=== PATIENT | female | born 1985 | race Two or more races ===

== ENCOUNTER 2016-11-14 17:07 | Outpatient (CLI) | payer MEDICAID ==
[~2016-11-14] VITALS: Ht 152.4 cm; Wt 76.1 kg
[~2016-11-14 17:07] MED LIST: CALC-176 PO; PRENAT PO
[2016-11-14 17:36] VITALS: BP 109/68; PULSE 75; RESP 18; Ht 152.4 cm; Wt 76.1 kg
[2016-11-14] MEDS ORDERED: LACTATED RINGER'S 1,000 ML IV ONE (18:00)
[2016-11-14] MEDS ORDERED: LACTATED RINGER'S 1,000 ML IV SCH (18:00)
[2016-11-14 19:11] LABS: BASOPHILS % 0.3 % (0.0-2.0); EOSINOPHILS # 0.1 10^3/ul (0.0-0.5); HEMATOCRIT 32.9 % (37.0-47.0); HEMOGLOBIN 11.1 g/dl (12.0-16.0); LYMPHOCYTES # 1.3 10^3/ul (0.8-2.9); LYMPHOCYTES % 19.9 % (15.0-51.0); MEAN CORPUSCULAR HEMOGLOBIN 28.5 pg (29.0-33.0); MEAN CORPUSCULAR HGB CONC 33.6 g/dl (32.0-37.0); MEAN CORPUSCULAR VOLUME 84.7 fl (82.0-101.0); MEAN PLATELET VOLUME 8.9 fl (7.4-10.4); MONOCYTE # 0.6 10^3/ul (0.3-0.9); MONOCYTES % 9.4 % (0.0-11.0); NEUTROPHIL # 4.7 10^3/ul (1.6-7.5); NEUTROPHILS % 69.4 % (39.0-77.0); PLATELET COUNT 132 10^3/UL (140-440); RED BLOOD COUNT 3.89 10^6/ul (4.20-5.40); UNCORRECTED WBC 6.8 10^3/ul (4.8-10.8); WHITE BLOOD COUNT 6.8 10^3/ul (4.8-10.8)
[2016-11-14 19:12] LABS: ADD UMIC NO; URINE BILIRUBIN (Dip) NEGATIVE (NEGATIVE); URINE BLOOD (Dip) NEGATIVE (NEGATIVE); URINE COLOR LT. YELLOW (YELLOW); URINE GLUCOSE (Dip) NEGATIVE (NEGATIVE); URINE KETONES (Dip) NEGATIVE (NEGATIVE); URINE LEUKOCYTE ESTERASE (Dip) NEGATIVE (NEGATIVE); URINE NITRITE (Dip) NEGATIVE (NEGATIVE); URINE TOTAL PROTEIN (Dip) NEGATIVE (NEGATIVE); URINE UROBILINOGEN (Dip) 0.2 E.U./dL (0.1-1.0)
[2016-11-14 19:25] LABS: CONDITION 1
--- NOTE | 2016-11-14 19:52 | RADRPT ---
PROCEDURE: US OB biophysical profile. CLINICAL INDICATION: labor TECHNIQUE: Multiple sonographic images of the pelvis were obtained. The images were reviewed on a PACS workstation. COMPARISON: No prior studies are available for comparison. FINDINGS: There is a single viable intrauterine gestation. Cardiac activity is present with 137 beats per min nez perce. There is a transverse presentation to maternal left. The placenta is fundal and posterior. There is no evidence of placental abruption. There is a mildly elevated amount of amniotic fluid with an JAD = 19.4 cm. Biophysical profile: movement 2/2 tone 2/2. breathing 2/2 JAD 2/2 Total 06/12 RPTAT: AA . IMPRESSION: Normal biophysical profile. Transverse presentation to maternal left. Mildly elevated JAD of 19.4 cm. Physician Juan Date Time Electronically viewed and signed by Physician Juan on 11/14/2016 19:52 /
--- NOTE | 2016-11-14 19:54 | RADRPT ---
PROCEDURE: US OB CLINICAL INDICATION: PTL TECHNIQUE: Multiple sonographic images of the pelvis were obtained. The images were reviewed on a PACS workstation. COMPARISON: None FINDINGS: The cervix is closed with a length of 4.9 cm. There is a single viable intrauterine gestation. Cardiac activity is present with 134 beats per minute. There is a transverse presentation to maternal left. The placenta is posterior and fundal. There is no evidence for an abruption or placenta previa. There is a mildly elevated amount of amniotic fluid with an JAD = 19.4 cm. Measurements were made in order to determine age. The results are as follows (cm): BPD =9.29 HC =33.22 AC =33.50 FL =6.49 Estimated gestational age by ultrasound of approximately 36 weeks, 4 days. The estimated date of delivery by ultrasound is 12/08/2016. Reported gestational age by LMP of approximately 33 weeks, 6 days. The reported date of delivery by LMP is 12/27/2016. EFW = 2968 grams (above the 97th percentile) IMPRESSION: Single viable intrauterine gestation of approximately 36 weeks, 4 days . The estimated date of delivery is 12/08/2016 . Dating by ultrasound is within 19 days of dating by LMP. Mildly elevated JAD of 19.4 cm. Estimated weight above the 97th percentile. Transverse presentation to maternal left. RPTAT: EE Physician Juan Date Time Electronically viewed and signed by Physician Juan on 11/14/2016 19:54 /
--- NOTE | 2016-11-14 20:52 | TRIAGE ---
OB Triage Datetime Report Generated by CPN: 11/14/2016 20:52 Datetime: 11/14/2016 20:04 Monitor Mode: External Quality: Mild Pattern: Normal: <= 5 Contractions in 10 Minutes Resting Tone Lyle: Relaxed Heart Rate FHR Baseline Rate: 115 Monitor Mode: External US FHR Baseline Changes: No Baseline Change Variability: Moderate 6-25 bpm Accelerations: 15X15 Decelerations: None Category: Category I Datetime: 11/14/2016 19:15 Stage of : OB Triage Monitor Mode: External Quality: Mild Pattern: Normal: <= 5 Contractions in 10 Minutes Resting Tone Lyle: Relaxed Contraction Comments: Pt denies feeling Heart Rate FHR Baseline Rate: 120 Monitor Mode: External US FHR Baseline Changes: No Baseline Change Variability: Moderate 6-25 bpm Accelerations: 15X15 Decelerations: None Category: Category I Pain Assessment Pain Scale: 0 Pain Presence: None/Denies Pain Type: N/A Datetime: 11/14/2016 18:30 Stage of : OB Triage Maternal Assessment Level of Consciousness: Fully Conscious Labor Evaluation Frequency: 3UC/HR Monitor Mode: External Duration (sec)2399: 110-130 Quality: Moderate Resting Tone Lyle: Relaxed Heart Rate FHR Baseline Rate: 125 Monitor Mode: External US Variability: Moderate 6-25 bpm Accelerations: 15X15 Decelerations: None Pain Assessment Pain Scale: 0 Pain Presence: None/Denies Pain Type: N/A Pain Goal: 3 Vaginal Exam Membrane Status: Intact Vaginal Bleeding: None Datetime: 11/14/2016 17:43 Labor Evaluation Frequency: Q10/MIN Monitor Mode: External Duration (sec)2399: 70-90 Quality: Mild Pattern: Normal: <= 5 Contractions in 10 Minutes Resting Tone Lyle: Relaxed Heart Rate FHR Baseline Rate: 125 Monitor Mode: External US FHR Baseline Changes: No Baseline Change Variability: Moderate 6-25 bpm Accelerations: 15X15 Decelerations: None Category: Category I Datetime: 11/14/2016 17:40 Assessment Type: Admission Assessment Maternal Assessment Level of Consciousness: Fully Conscious DTR's/Clonus: DTRs 2+; No Clonus Headache: Denies Blurred Vision: No Respiratory Effort: Unlabored; Regular Rhythm; Equal Expansion Breath Sounds, Left: Clear and Equal Breath Sounds, Right: Clear and Equal Nausea/Vomiting: Denies RUQ Epigastric Pain: Denies Lower Extremities Edema: None Degree: None Upper Extremities Edema: None Degree: None Facial Edema: None Fall Risk Assessment History of Falling: (0) No Secondary Diagnosis: (0) No Ambulatory Aid: (0) Bedrest/Nurse Assist IV Therapy: (0) No Gait: (0) Normal/Bedrest/Immobile Mental Status: (0) Oriented to Own Ability Fall Score: 0 Fall Risk Score Definition: No Risk: No action required Datetime: 11/14/2016 17:39 Time of Arrival: 11/14/2016 17:02 EGA: 33.6 Arrived By: Ambulatory Arrived From: Dr. Thomason Chief Complaint: R/O PTL Movement: Present Contractions: Irregular Rupture of Membranes: Denies Vaginal Bleeding: None Vaginal Discharge: Denies Recent Sexual Intercouse: Denies Abdominal Trauma: Not Applicable Patient Complaints: Contractions Time Provider Notified: 11/14/2016 17:53 Provider Notified: Dr Banegas Initial Plan: NST Datetime: 10/05/2016 18:19 EGA: 28.1 Datetime: 10/05/2016 17:41 Fall Score: 0 Fall Risk Score Definition: No Risk: No action required
--- NOTE | 2016-11-15 00:01 | HP ---
Date/Time of Note Date/Time of Note DATE: 11/14/16 TIME: 23:54 OB - History Hx of Present Chief Complaint: Abdominal pain. Patient denies leakage of fluid or vaginal bleeding. Patien Estimated Due Date: Dec 27, 2016 : 3 Para: 2 Spontaneous : 0 Therapeutic : 0 Care: Good Care Ultrasounds: Normal mid trimester US Past Family/Social History * Past Medical, Surgical, Family and Obstetric Histories reviewed from chart. OB Admission Exam Vital Signs Vital Signs Vital Signs Date Time Temp Pulse Resp B/P Pulse Ox O2 Delivery O2 Flow Rate FiO2 11/14/16 17:36 97.8 75 18 109/68 Room Air Physical Exam Abdomen: WNL Cervical Dilatation: None Effacement: 0% Heart Rate: 140's Decelerations: No Decelerations Varibility: Marked Contractions on Admission: >10 Minutes Apart Last 72 hours Lab Results CBC & BMP 11/14/16 18:10 OB Assessment/Plan Reason for admission: other Other Assessment: Evaluation for labor. No sign of labor. Other plan: Discharge home. ARNOL MAHER MD Nov 15, 2016 00:01
== END 2016-11-14 20:52 | disposition home or self-care (01) ==
LOC: L-D 17:07 → OBT 17:07
PROVIDERS: ATTEND Obstetrics & Gynecology
DX: O26.893 Other specified pregnancy related conditions, third trimester (principal); R10.9 Unspecified abdominal pain; O62.9 Abnormality of forces of labor, unspecified; O60.03 Preterm labor without delivery, third trimester; Z3A.33 33 weeks gestation of pregnancy
CPT/HCPCS: 36415; 76815; 76817; 76818; 81003; 85025; 96360; 96361; J7120; Z7500; G0463

== ENCOUNTER 2016-12-06 16:34 | Inpatient (IN) | payer MEDICAID ==
[~2016-12-06] VITALS: Ht 152.4 cm; Wt 70.1 kg
[2016-12-06 16:44] VITALS: Ht 152.4 cm; Wt 70.1 kg
[2016-12-06 16:45] VITALS: BP 107/63; PULSE 95; RESP 18
[2016-12-06] MEDS ORDERED: CITRIC ACID/NA CITRATE 30 ML CUP PO ONE (17:30)
[2016-12-06] MEDS ORDERED: LACTATED RINGER'S 1,000 ML IV SCH (17:59)
[2016-12-06] MEDS ORDERED: MISOPROSTOL 200 MCG TAB PR PRN (18:00)
[2016-12-06] MEDS ORDERED: OXYTOCIN 30 UNITS/LR 500 ML IV PRN (18:00)
[2016-12-06] MEDS ORDERED: METHYLERGONOVINE 0.2 MG INJ IM PRN (18:00)
[2016-12-06] MEDS ORDERED: CARBOPROST 250 MCG INJ IM PRN (18:00)
[2016-12-06] MEDS ORDERED: CEFAZOLIN 2 GM/50 ML (PMX) 50 ML IV SCH (18:00)
[2016-12-06 18:17] LABS: INR 0.97; PARTIAL THROMBOPLASTIN TIME 26.8 Sec (25.0-35.0); PROTIME 12.9 Sec (12.2-14.2)
[2016-12-06 18:23] LABS: BASOPHILS % 0.3 % (0.0-2.0); EOSINOPHILS # 0.1 10^3/ul (0.0-0.5); EOSINOPHILS % 0.6 % (0.0-7.0); HEMATOCRIT 38.5 % (37.0-47.0); LYMPHOCYTES # 1.6 10^3/ul (0.8-2.9); MEAN CORPUSCULAR HEMOGLOBIN 28.6 pg (29.0-33.0); MEAN CORPUSCULAR HGB CONC 33.8 g/dl (32.0-37.0); MEAN CORPUSCULAR VOLUME 84.6 fl (82.0-101.0); MEAN PLATELET VOLUME 9.3 fl (7.4-10.4); MONOCYTE # 0.8 10^3/ul (0.3-0.9); MONOCYTES % 9.5 % (0.0-11.0); NEUTROPHIL # 6.3 10^3/ul (1.6-7.5); NEUTROPHILS % 71.6 % (39.0-77.0); PLATELET COUNT 132 10^3/UL (140-440); RED BLOOD COUNT 4.55 10^6/ul (4.20-5.40); RED CELL DISTRIBUTION WIDTH 13.7 % (11.5-14.5); UNCORRECTED WBC 8.9 10^3/ul (4.8-10.8); WHITE BLOOD COUNT 8.9 10^3/ul (4.8-10.8)
[2016-12-06 18:25] LABS: CONDITION 1
[2016-12-06] MEDS ORDERED: ONDANSETRON 4 MG INJ ONE (20:56)
[2016-12-06] MEDS ORDERED: morphine SULFATE/PF (10 MG/10 ML) INJ ONE (20:56)
[2016-12-06] MEDS ORDERED: KETOROLAC 30 MG INJ ONE (20:57)
[2016-12-06] MEDS ORDERED: METOCLOPRAMIDE 10 MG INJ ONE (20:57)
--- NOTE | 2016-12-06 21:09 | PREOPHP ---
DATE OF ADMISSION: 12/06/2016 HISTORY OF PRESENT ILLNESS: A 31-year-old female 3, para 2, estimated delivery 12/27/2016 a t 37 weeks' gestation presented with labor contractions. PAST MEDICAL HISTORY: Unremarkable. PAST SURGICAL HISTORY: section x2, cholecystectomy, appendectomy. ALLERGIES: NO KNOWN ALLERGIES. FAMILY HISTORY: Diabetes. PHYSICAL EXAMINATION: VITAL SIGNS: Patient is afebrile. Vital signs stable. HEAD, NECK AND CHEST: Within normal limits. ABDOMEN: Soft, nontender and gravid. EXTREMITIES: Within normal limits. NEUROLOGIC: Within normal limits. IMPRESSION: at 37 weeks with previous section x2 and contractions. The patient desires sterilization. PLAN: Delivery by repeat section and bilateral tubal ligation. Risks, benefits and altern atives of the procedure were explained to the patient. The patient has been counseled about all of her contraceptive options including all methods of sterilization. It was explained to the patient t hat with bilateral tubal ligation there is a chance of failure resulting in ectopic and/or intrauterine . After counseling, the patient said she understood and gave informed consen t for the procedures. Dictated By: ARNOL ESPINAL/BRITTANY Conf#: [id number] DID#: [id number]
[2016-12-06] MEDS ORDERED: EPHEDrine SULFATE 50 MG/5 ML SYG ONE (21:20)
[2016-12-06] MEDS ORDERED: ONDANSETRON 4 MG INJ IV PRN ×2 (21:30→22:00)
[2016-12-06] MEDS ORDERED: HYDROmorphONE (0.2 MG/ML) 10ML SYG IV PRN ×3 (21:30)
[2016-12-06] MEDS ORDERED: MEPERIDINE 25 MG INJ IV PRN (21:30)
[2016-12-06] MEDS ORDERED: METOCLOPRAMIDE 10 MG INJ IV PRN (21:30)
[2016-12-06] MEDS ORDERED: DIPHENHYDRAMINE 50 MG INJ IV PRN ×2 (21:30→22:00)
[2016-12-06] MEDS ORDERED: KETOROLAC 30 MG INJ IV PRN (22:00)
[2016-12-06] MEDS ORDERED: NALOXONE (0.4 MG/ML) INJ IV PRN (22:00)
[2016-12-06] MEDS ORDERED: HYDROmorphONE 1 MG/ML SYG IV PRN ×3 (22:00)
[2016-12-06] MEDS ORDERED: PROCHLORPERAZINE 10 MG INJ IV PRN (22:00)
[2016-12-06] MEDS ORDERED: FENTAnyl 50 MCG/ML VIAL ONE (22:10)
--- NOTE | 2016-12-06 23:21 | DELSUM ---
Delivery Summary A-C Datetime Report Generated by CPN: 12/06/2016 23:21 DELIVERY PERSONNEL Senior Asset Manager: Long, Monika MATERNAL INFORMATION Delivery Anesthesia: Spinal Medications in Delivery: SEE ANESTHESIA RECORDS Estimated Blood Loss (ml): 700 Placenta Cultured: No Maternal Complications: Other RN Comments: REPEAT IN LABOR LABOR SUMMARY EDC: 12/27/2016 00:00 EDC: 12/27/2015 00:00 No. Babies in Womb: 0 Attempted: No Labor Anesthesia: None LABOR INFORMATION Reason for Induction: Not Applicable Oxytocin: N/A Group B Beta Strep: Negative Group B Beta Strep: Negative Antibiotics # of Doses: 1 Antibiotics Time of Last Dose: 2119 Steroids Given: None Reason Steroids Not Administered: Not Applicable MEMBRANES Membranes Rupture Method: Artificial Rupture of Membranes: 12/06/2016 21:31 Length of Rupture (hr): 0.02 Amniotic Fluid Color: Light Meconium Amniotic Fluid Amount: Moderate Amniotic Fluid Odor: None STAGES OF LABOR Stage 3 hr: 0 Stage 3 min: 1 CSECTION DELIVERY Primary Indication: Prolonged Latent Phase Secondary Indication: Other Other Secondary Indication: REPEAT X3 + BTL CSection Urgency: Non Elective CSection Incidence: Repeat Labor: Labor Elective: Nonelective CSection Incision: Lower Uterine Transverse Sterilization Procedure: Edison BABY A INFORMATION Delivery Date/Time: 12/06/2016 21:32 Method of Delivery: Born in Route : No : N/A Forceps: N/A Vacuum Extraction: N/A Shoulder Dystocia : N/A SHOULDER DYSTOCIA BABY A Delivery Date/Time: 12/06/2016 21:32 PRESENTATION/POSITION BABY A Presentation: Cephalic Cephalic Presentation: Vertex Vertex Position: Left Occipital Anterior Breech Presentation: N/A PLACENTA INFORMATION BABY A Placenta Delivery Time : 12/06/2016 21:33 Placenta Method of Delivery: Manual Removal Placenta Status: Delivered SCORES BABY A Heart Rate 1 min: >100 bpm Resp Effort 1 min: Good Cry Reflex Irritability 1 min: Cough/Sneeze/Pulls Away Muscle Tone 1 min: Active Motion Color 1 min: Body [place], Extremit Blue Resuscitation Effort 1 min: Tactile Stimulation SCORE 1 MIN: 9 Heart Rate 5 min: >100 bpm Resp Effort 5 min: Good Cry Reflex Irritability 5 min: Cough/Sneeze/Pulls Away Muscle Tone 5 min: Active Motion Color 5 min: Body [place], Extremit Blue Resuscitation Effort 5 min: Tactile Stimulation SCORE 5 MIN: 9 INFANT INFORMATION BABY A Gestational Age at Delivery: 37.0 Gestational Status: Early Term- 37- 38.6 Weeks Infant Outcome : Liveborn Infant Condition : Stable Sex: Male IDENTIFICATION/MEDS BABY A ID Band Number: [id number] ID Band Location: Right Leg; Left Arm Sensor Number: [id number] Sensor Location : Cord Clamp Vitamin K Given : Not Given Erythromycin Given: Not Given WEIGHT/LENGTH BABY A Infant Birthweight (gm): 3765 Infant Weight (lb): 8 Weight (oz): 5 Length (in): 19.25 Infant Length (cm): 48.90 CORD INFORMATION BABY A No. Cord Vessels: 3 Nuchal Cord : N/A Cord Blood Taken: Yes Infant Suction: Nose; Pharynx ASSESSMENT BABY A Infant Complications: None Physical Findings at Delivery: Within Normal Limits Infant Respirations: Appears Normal Straw Baler/ALS Called : No Care By: CHRISTIE RT; CASTILLO DELCID Transferred To: Remains with Mother
[2016-12-07] VITALS (7 sets, daily range): BP systolic 99–115; BP diastolic 55–79; PULSE 73–94; RESP 18–20
--- NOTE | 2016-12-07 00:38 | OPR ---
DATE OF OPERATION: 12/06/2016 12/06/2016 Bandar PREOPERATIVE DIAGNOSES: at 37 weeks with previous section a nd labor contractions and Voluntary sterilization. POSTOPERATIVE DIAGNOSES: 1. at 37 weeks. 2. Previous section. 3. Labor contractions. 4. Voluntary sterilization. OPERATIONS PERFORMED: 1. Repeat low-transverse section. 2. Bilateral tubal ligation. SURGEON: Arnol Banegas MD HUMAN RESOURCES CONSULTANT: Bandar Galdamez MD ANESTHESIA: Spinal. ANESTHESIOLOGIST: Vika Acosta MD. PROCEDURE: The patient was taken to the operating room and placed on the operating table. After chance ccessful spinal anesthesia was given, the patient was placed in supine position. The area was prepa red and draped in the usual sterile fashion. Spinal anesthesia was tested and was satisfactory. Us ing a scalpel, Pfannenstiel incision was made about 2 fingerbreadths above the symphysis pubis. The incision was carried to the fascia. The fascia was incised and extended bilaterally with Huang scis sors. Two Kochers were used to separate the fascia from the muscle. The muscle was dissected in th e midline down to peritoneum. The peritoneum was secured with 2 Kellys and incised with Metzenbaum scissors. Using a scalpel, a small transverse incision was made on the lower segment of the uterus. Upon entering the uterine cavity, bandage scissors were inserted to extend the incision bilaterall y and curved up. Baby was delivered from cephalic presentation. After suctioning clear of amniotic fluid, the baby was handed off to the team in attendance. Apgars were [address] nta was delivered without difficulty. The uterus was closed with #1 Monocryl continuous lock. Afte r assuring hemostasis, both ovaries and tubes were inspected, and all looked normal. The right fall opian tube was grasped with a Katharina clamp. Using 0 plain suture ligature, a 5 cm segment of the r ight fallopian tube was doubly ligated. Using Metzenbaum scissors, a portion of the right fallopian tube above the ligated area was excised and sent to pathology. Same procedure was repeated on the left fallopian tube. After assuring hemostasis, the peritoneal cavity was irrigated with warm salin e. The peritoneum was closed with 2-0 Vicryl continuous. The fascia was closed with #1 Vicryl cont inuous in 2 segments. The skin was closed with chris. ESTIMATED BLOOD LOSS: 700 mL. COMPLICATIONS: None. COUNTS: All counts were correct. Dictated By: ARNOL ESPINAL/BRITTANY Conf#: [id number] DID#: [id number]
[2016-12-07] MEDS: LACTATED RINGER'S 1,000 ML IV SCH ×3 (02:16→18:28)
[2016-12-07] MEDS ORDERED: LANOLIN 7 GM TUBE TOP PRN (02:30)
[2016-12-07] MEDS ORDERED: CARBOPROST 250 MCG INJ IM PRN (02:30)
[2016-12-07] MEDS ORDERED: METHYLERGONOVINE 0.2 MG INJ IM PRN (02:30)
[2016-12-07] MEDS ORDERED: OXYTOCIN 30 UNITS/LR 500 ML IV PRN (02:30)
[2016-12-07] MEDS ORDERED: MISOPROSTOL 200 MCG TAB PR PRN (02:30)
[2016-12-07] MEDS: OXYTOCIN 30 UNITS/LR 500 ML IV SCH ×2 (03:12→07:05)
[2016-12-07 09:20] LABS: BASOPHILS % 0.2 % (0.0-2.0); EOSINOPHILS % 0.5 % (0.0-7.0); HEMATOCRIT 33.5 % (37.0-47.0); HEMOGLOBIN 11.4 g/dl (12.0-16.0); LYMPHOCYTES % 9.7 % (15.0-51.0); MEAN CORPUSCULAR HEMOGLOBIN 28.7 pg (29.0-33.0); MEAN CORPUSCULAR HGB CONC 34.2 g/dl (32.0-37.0); MEAN PLATELET VOLUME 8.9 fl (7.4-10.4); MONOCYTE # 0.5 10^3/ul (0.3-0.9); MONOCYTES % 5.1 % (0.0-11.0); NEUTROPHIL # 8.3 10^3/ul (1.6-7.5); NEUTROPHILS % 84.5 % (39.0-77.0); PLATELET COUNT 114 10^3/UL (140-440); RED BLOOD COUNT 3.98 10^6/ul (4.20-5.40); RED CELL DISTRIBUTION WIDTH 13.6 % (11.5-14.5); UNCORRECTED WBC 9.8 10^3/ul (4.8-10.8); WHITE BLOOD COUNT 9.8 10^3/ul (4.8-10.8)
[2016-12-07 09:33] LABS: CONDITION 1
[2016-12-07] MEDS: SENNA/DOCUSATE NA (8.6MG/50MG) TAB PO SCH ×2 (10:27→22:19)
--- NOTE | 2016-12-07 20:00 | PN ---
Date/Time of Note Date/Time of Note DATE: 12/07/16 TIME: 19:58 OB Subjective Subjective Subjective No complaint. OB Objective Abdomen: WNL (Incision clean and dry) Extremities: Normal OB Assessment/Plan Reason for admission: other Other Assessment: POD #1 Stable Other plan: Ambulate Advance diet. ARNOL MAHER MD Dec 07, 2016 20:00
[2016-12-07] MEDS ORDERED: OXYCODONE/ACETAMINOPHEN (5/325) TAB PO PRN ×2 (22:00)
[2016-12-07] MEDS: IBUPROFEN 800 MG TAB PO SCH (22:19)
[2016-12-08] MEDS: LACTATED RINGER'S 1,000 ML IV SCH ×2 (02:16→10:16)
[2016-12-08] MEDS: IBUPROFEN 800 MG TAB PO SCH ×3 (06:54→22:15)
[2016-12-08 07:40] VITALS: BP 104/57; PULSE 76; RESP 18
[2016-12-08] MEDS ORDERED: INFLUENZA VIRUS VACCINE 0.5 ML (DISPENSING) IM* ONE (09:00)
[2016-12-08] MEDS: SENNA/DOCUSATE NA (8.6MG/50MG) TAB PO SCH ×2 (09:57→21:03)
[2016-12-08] MEDS ORDERED: NA PHOSPHATE/BIPHOS 133 ML ENEMA PR ONE (10:30)
[2016-12-08 16:00] VITALS: BP 108/65; PULSE 76; RESP 20
--- NOTE | 2016-12-08 18:19 | PN ---
Date/Time of Note Date/Time of Note DATE: 12/08/16 TIME: 18:18 OB Subjective Subjective Subjective Post day 2 Vital sign is stable afebrile abdomen soft incision dry bowel sound present no bowel movement extremity normal ambulation recommended Current Medications Medications (Trade) Dose Ordered Sig/Almita Route PRN Reason Start Time Stop Time Status Last Admin Dose Admin Citric Acid/ Sodium Citrate 30 ml 30 ml pre-procedure ONCE PO 12/06/16 17:30 12/06/16 17:37 DC 12/06/16 20:41 Lactated Ringer's 1,000 ml @ 125 mls/hr Q8H IV 12/06/16 17:59 12/07/16 02:21 DC 12/06/16 19:53 Cefazolin Sodium/ Dextrose 50 ml @ 100 mls/hr ONCE IV 12/06/16 18:00 12/07/16 02:21 DC Oxytocin/Lactated Ringer's 500 ml @ 0 mls/hr ONCE PRN IV For Hemorrhage Management 12/06/16 18:00 12/07/16 02:21 DC 12/06/16 23:53 Methylergonovine Maleate (Methergine) 0.2 mg ONCE PRN IM VAGINAL BLEEDING 12/06/16 18:00 12/07/16 02:21 DC Carboprost Tromethamine (Hemabate) 250 mcg ONCE PRN IM VAGINAL BLEEDING 12/06/16 18:00 12/07/16 02:21 DC Misoprostol (Cytotec) 1,000 mcg ONCE PRN IL VAGINAL BLEEDING 12/06/16 18:00 12/07/16 02:21 DC Morphine Sulfate (Duramorph) 10 mg STK-MED ONCE .ROUTE 12/06/16 20:56 12/06/16 20:57 DC Ondansetron HCl (Zofran Inj) 4 mg STK-MED ONCE .ROUTE 12/06/16 20:56 12/06/16 20:57 DC Metoclopramide HCl (Reglan) 10 mg STK-MED ONCE .ROUTE 12/06/16 20:57 12/06/16 20:58 DC Ketorolac Tromethamine (Toradol) 30 mg STK-MED ONCE .ROUTE 12/06/16 20:57 12/06/16 20:58 DC Hydromorphone HCl (Dilaudid (Rec)) 0.2 mg PACU ORDER PRN IV MILD PAIN LEVEL 1-3 12/06/16 21:30 12/07/16 02:21 DC Hydromorphone HCl (Dilaudid (Rec)) 0.4 mg PACU ORDER PRN IV MODERATE PAIN LEVEL 4-6 12/06/16 21:30 12/07/16 02:21 DC Hydromorphone HCl (Dilaudid (Rec)) 0.6 mg PACU ORDER PRN IV SEVERE PAIN LEVEL 7-10 12/06/16 21:30 12/07/16 02:21 DC Ondansetron HCl (Zofran Inj) 4 mg PACU ORDER PRN IV NAUSEA AND/OR VOMITING 12/06/16 21:30 12/07/16 02:21 DC Metoclopramide HCl (Reglan) 10 mg PACU ORDER PRN IV NAUSEA AND/OR VOMITING 12/06/16 21:30 12/07/16 02:21 DC Meperidine HCl (Demerol) 25 mg PACU ORDER PRN IV POST-OP RIGORS 12/06/16 21:30 12/07/16 02:21 DC Diphenhydramine HCl (Benadryl) 25 mg PACU ORDER PRN IV PRURITUS 12/06/16 21:30 12/07/16 02:21 DC Ephedrine Sulfate 50 mg STK-MED ONCE .ROUTE 12/06/16 21:20 12/06/16 21:21 DC Naloxone HCl (Narcan) 0.1 mg Q2M PRN IV FOR RESP RATE 8 OR LESS 12/06/16 22:00 12/07/16 02:21 DC Ketorolac Tromethamine (Toradol) 30 mg Q6H PRN IV PAIN 12/06/16 22:00 12/07/16 21:59 DC 12/07/16 14:51 Hydromorphone HCl (Dilaudid) 1 mg Q3H PRN IV BREAKTHROUGH PAIN 12/06/16 22:00 12/07/16 21:59 DC Hydromorphone HCl (Dilaudid) 0.2 mg Q3H PRN IV PAIN LEVEL 1-5 12/06/16 22:00 12/07/16 21:59 DC Hydromorphone HCl (Dilaudid) 0.4 mg Q3H PRN IV PAIN LEVEL 6-10 12/06/16 22:00 12/07/16 21:59 DC Diphenhydramine HCl (Benadryl) 25 mg Q6H PRN IV ITCHING 12/06/16 22:00 12/07/16 21:59 DC Ondansetron HCl (Zofran Inj) 4 mg Q6H PRN IV NAUSEA AND/OR VOMITING 12/06/16 22:00 12/07/16 21:59 DC Prochlorperazine (Compazine Inj) 10 mg ONCE PRN IV NAUSEA AND/OR VOMITING 12/06/16 22:00 12/07/16 02:21 DC Fentanyl 100 mcg 100 mcg STK-MED ONCE .ROUTE 12/06/16 22:10 12/06/16 22:11 DC Lactated Ringer's 1,000 ml @ 125 mls/hr Q8H IV 12/07/16 02:16 12/07/16 18:28 Oxytocin/Lactated Ringer's 500 ml @ 125 mls/hr Q4H IV 12/07/16 02:16 12/07/16 10:15 DC 12/07/16 07:05 Oxycodone/ Acetaminophen (Percocet (5/ 325)) 1 tab Q4H PRN PO PAIN LEVEL 4-6 12/07/16 22:00 Oxycodone/ Acetaminophen (Percocet (5/ 325)) 2 tab Q4H PRN PO PAIN LEVEL 7-10 12/07/16 22:00 Ibuprofen (Motrin) 800 mg Q8 PO 12/07/16 22:00 12/08/16 14:08 Simethicone (Mylicon) 160 mg Q8H PRN PO DISTENSION/GAS/BLOATING 12/07/16 02:30 Senna/Docusate Sodium (Senokot-S) 1 tab BID PO 12/07/16 09:00 12/08/16 09:57 Lanolin (Jip-X-Twxjej) 1 applic BEDSIDE MEDICATION PRN TOP BEDSIDE FOR MISSY TO NIPPLES 12/07/16 02:30 Diphtheria/ Tetanus/Acell Pertussis 0.5 ml 0.5 ml ONCE ONCE IM* 12/09/16 09:00 12/09/16 09:01 Oxytocin/Lactated Ringer's 500 ml @ 0 mls/hr ONCE PRN IV For Hemorrhage Management 12/07/16 02:30 Methylergonovine Maleate (Methergine) 0.2 mg ONCE PRN IM VAGINAL BLEEDING 12/07/16 02:30 Carboprost Tromethamine (Hemabate) 250 mcg ONCE PRN IM VAGINAL BLEEDING 12/07/16 02:30 Misoprostol (Cytotec) 1,000 mcg ONCE PRN IL VAGINAL BLEEDING 12/07/16 02:30 Influenza Virus Vaccine (Fluzone) 0.5 ml ONCE ONCE IM* 12/08/16 09:00 12/08/16 09:01 SUNDAR 12/08/16 17:49 Sodium Biphosphate/ Sodium Phosphate (Fleet Enema) 133 ml ONCE ONCE IL 12/08/16 10:30 12/08/16 10:31 MAYRA WALTERS MD Dec 08, 2016 18:19
[2016-12-08 20:10] VITALS: BP 103/71; PULSE 76; RESP 18
[2016-12-09 04:10] VITALS: BP 101/63; PULSE 64; RESP 18
[2016-12-09] MEDS: IBUPROFEN 800 MG TAB PO SCH (05:40)
[2016-12-09 08:30] VITALS: BP 93/64; PULSE 67; RESP 18
[2016-12-09] MEDS: SENNA/DOCUSATE NA (8.6MG/50MG) TAB PO SCH (08:38)
[2016-12-09] MEDS ORDERED: DIPHTH/TET/ACEL PERTUSS (ADULT) 0.5 ML VIAL IM* ONE (09:00)
--- NOTE | 2016-12-09 12:55 | DS ---
Date/Time of Note Date/Time of Note DATE: 12/09/16 TIME: 12:50 Obstetrical Discharge Record Final Diagnosis Final Diagnosis: Term delivered Section Section: Repeat Condition on Discharge Physical Assessment Last Vitals: 31 years old female third day post repeat with bilateral tubal ligation. Vital signs are stable afebrile abdomen soft incision dry and healing well bowel sounds present uterus firm lochia normal extremity normal patient is discharged home recommended to make appointment in 4 day at the clinic for removal of chris at the time of discharge patient received a prescription of analgesics for pain. Current Medications Medications (Trade) Dose Ordered Sig/Almita Route PRN Reason Start Time Stop Time Status Last Admin Dose Admin Citric Acid/ Sodium Citrate 30 ml 30 ml pre-procedure ONCE PO 12/06/16 17:30 12/06/16 17:37 DC 12/06/16 20:41 Lactated Ringer's 1,000 ml @ 125 mls/hr Q8H IV 12/06/16 17:59 12/07/16 02:21 DC 12/06/16 19:53 Cefazolin Sodium/ Dextrose 50 ml @ 100 mls/hr ONCE IV 12/06/16 18:00 12/07/16 02:21 DC Oxytocin/Lactated Ringer's 500 ml @ 0 mls/hr ONCE PRN IV For Hemorrhage Management 12/06/16 18:00 12/07/16 02:21 DC 12/06/16 23:53 Methylergonovine Maleate (Methergine) 0.2 mg ONCE PRN IM VAGINAL BLEEDING 12/06/16 18:00 12/07/16 02:21 DC Carboprost Tromethamine (Hemabate) 250 mcg ONCE PRN IM VAGINAL BLEEDING 12/06/16 18:00 12/07/16 02:21 DC Misoprostol (Cytotec) 1,000 mcg ONCE PRN ND VAGINAL BLEEDING 12/06/16 18:00 12/07/16 02:21 DC Morphine Sulfate (Duramorph) 10 mg STK-MED ONCE .ROUTE 12/06/16 20:56 12/06/16 20:57 DC Ondansetron HCl (Zofran Inj) 4 mg STK-MED ONCE .ROUTE 12/06/16 20:56 12/06/16 20:57 DC Metoclopramide HCl (Reglan) 10 mg STK-MED ONCE .ROUTE 12/06/16 20:57 12/06/16 20:58 DC Ketorolac Tromethamine (Toradol) 30 mg STK-MED ONCE .ROUTE 12/06/16 20:57 12/06/16 20:58 DC Hydromorphone HCl (Dilaudid (Rec)) 0.2 mg PACU ORDER PRN IV MILD PAIN LEVEL 1-3 12/06/16 21:30 12/07/16 02:21 DC Hydromorphone HCl (Dilaudid (Rec)) 0.4 mg PACU ORDER PRN IV MODERATE PAIN LEVEL 4-6 12/06/16 21:30 12/07/16 02:21 DC Hydromorphone HCl (Dilaudid (Rec)) 0.6 mg PACU ORDER PRN IV SEVERE PAIN LEVEL 7-10 12/06/16 21:30 12/07/16 02:21 DC Ondansetron HCl (Zofran Inj) 4 mg PACU ORDER PRN IV NAUSEA AND/OR VOMITING 12/06/16 21:30 12/07/16 02:21 DC Metoclopramide HCl (Reglan) 10 mg PACU ORDER PRN IV NAUSEA AND/OR VOMITING 12/06/16 21:30 12/07/16 02:21 DC Meperidine HCl (Demerol) 25 mg PACU ORDER PRN IV POST-OP RIGORS 12/06/16 21:30 12/07/16 02:21 DC Diphenhydramine HCl (Benadryl) 25 mg PACU ORDER PRN IV PRURITUS 12/06/16 21:30 12/07/16 02:21 DC Ephedrine Sulfate 50 mg STK-MED ONCE .ROUTE 12/06/16 21:20 12/06/16 21:21 DC Naloxone HCl (Narcan) 0.1 mg Q2M PRN IV FOR RESP RATE 8 OR LESS 12/06/16 22:00 12/07/16 02:21 DC Ketorolac Tromethamine (Toradol) 30 mg Q6H PRN IV PAIN 12/06/16 22:00 12/07/16 21:59 DC 12/07/16 14:51 Hydromorphone HCl (Dilaudid) 1 mg Q3H PRN IV BREAKTHROUGH PAIN 12/06/16 22:00 12/07/16 21:59 DC Hydromorphone HCl (Dilaudid) 0.2 mg Q3H PRN IV PAIN LEVEL 1-5 12/06/16 22:00 12/07/16 21:59 DC Hydromorphone HCl (Dilaudid) 0.4 mg Q3H PRN IV PAIN LEVEL 6-10 12/06/16 22:00 12/07/16 21:59 DC Diphenhydramine HCl (Benadryl) 25 mg Q6H PRN IV ITCHING 12/06/16 22:00 12/07/16 21:59 DC Ondansetron HCl (Zofran Inj) 4 mg Q6H PRN IV NAUSEA AND/OR VOMITING 12/06/16 22:00 12/07/16 21:59 DC Prochlorperazine (Compazine Inj) 10 mg ONCE PRN IV NAUSEA AND/OR VOMITING 12/06/16 22:00 12/07/16 02:21 DC Fentanyl 100 mcg 100 mcg STK-MED ONCE .ROUTE 12/06/16 22:10 12/06/16 22:11 DC Lactated Ringer's 1,000 ml @ 125 mls/hr Q8H IV 12/07/16 02:16 12/07/16 18:28 Oxytocin/Lactated Ringer's 500 ml @ 125 mls/hr Q4H IV 12/07/16 02:16 12/07/16 10:15 DC 12/07/16 07:05 Oxycodone/ Acetaminophen (Percocet (5/ 325)) 1 tab Q4H PRN PO PAIN LEVEL 4-6 12/07/16 22:00 12/08/16 19:16 Oxycodone/ Acetaminophen (Percocet (5/ 325)) 2 tab Q4H PRN PO PAIN LEVEL 7-10 12/07/16 22:00 Ibuprofen (Motrin) 800 mg Q8 PO 12/07/16 22:00 12/09/16 05:40 Simethicone (Mylicon) 160 mg Q8H PRN PO DISTENSION/GAS/BLOATING 12/07/16 02:30 Senna/Docusate Sodium (Senokot-S) 1 tab BID PO 12/07/16 09:00 12/09/16 08:38 Lanolin (Bfv-[id number]-[id number]) 1 applic BEDSIDE MEDICATION PRN TOP BEDSIDE FOR MISSY TO NIPPLES 12/07/16 02:30 Diphtheria/ Tetanus/Acell Pertussis 0.5 ml 0.5 ml ONCE ONCE IM* 12/09/16 09:00 12/09/16 09:01 DC Oxytocin/Lactated Ringer's 500 ml @ 0 mls/hr ONCE PRN IV For Hemorrhage Management 12/07/16 02:30 Methylergonovine Maleate (Methergine) 0.2 mg ONCE PRN IM VAGINAL BLEEDING 12/07/16 02:30 Carboprost Tromethamine (Hemabate) 250 mcg ONCE PRN IM VAGINAL BLEEDING 12/07/16 02:30 Misoprostol (Cytotec) 1,000 mcg ONCE PRN ND VAGINAL BLEEDING 12/07/16 02:30 Influenza Virus Vaccine (Fluzone) 0.5 ml ONCE ONCE IM* 12/08/16 09:00 12/08/16 09:01 DC 12/08/16 17:49 Sodium Biphosphate/ Sodium Phosphate (Fleet Enema) 133 ml ONCE ONCE ND 12/08/16 10:30 12/08/16 10:31 DC Voiding: Yes Bowel Movement: Yes Breast: Filling Fundus: Firm Abdomen and Incision: Dry ,clean healing well Calf Tenderness: No Patient Condition: Good MAYRA KUMAR MD Dec 09, 2016 12:54
== END 2016-12-09 16:44 | disposition home or self-care (01) | DRG 766 ==
LOC: L-D 16:34 → OBT 16:34 → L-D 16:50 → PP1 12-07 01:07
PROVIDERS: ADMIT Obstetrics & Gynecology; ATTEND Obstetrics & Gynecology
PROC: 0UB70ZZ Excision of Bilateral Fallopian Tubes, Open Approach (ICD-10-PCS; 2016-12-06)
PROC: 10D00Z1 Extraction of Products of Conception, Low, Open Approach (ICD-10-PCS; principal; 2016-12-06 21:30)
DX: O34.211 Maternal care for low transverse scar from previous cesarean delivery (principal); Z30.2 Encounter for sterilization; Z37.0 Single live birth; Z3A.37 37 weeks gestation of pregnancy
CPT/HCPCS: 36415; 85025; 85610; 85730; 86592; 86850; 86900; 86901; 87340; 88302; 90686; 90715; 99464; G0463; J0690; J1885; J2210; J2274; J2405; J2590; J2765; J3010; J7120